=== PATIENT | female | born 1950 | race Caucasian/White ===

== ENCOUNTER 2018-02-24 12:53 | Inpatient (IN) | payer OTHER ==
[~2018-02-24] VITALS: Ht 175.3 cm; Wt 105.7 kg
--- NOTE | ~2018-02-24 | CON ---
[place], [place] REPORT OF CONSULTATION NAME: SAMANTHA STAFFORD UNIT #: [id number] ROOM: 520 DOCTOR: JACK SCHNEIDER MD BIRTHDATE: [birth year] DOS: 02/25/2018 REASON FOR CONSULTATION: Acute on chronic kidney disease. HISTORY OF PRESENT ILLNESS: This is a 67-year-old female who presented to the hospital with complaints of shortness of breath. She was also complaining of nonproductive dry cough with subjective fever and chills at home. Chest x-ray in the emergency room showed bilateral infiltrates. The patient was admitted to the hospital for treatment with IV antibiotics. On admission, she was noted to have a creatinine of 3.04. She does have a history of chronic kidney disease and follows with my associate, Dr. Anderson. She was last seen in the office on February 21. Her baseline creatinine has been around 1.3-1.5. She has a solitary right kidney. History of left nephrectomy about 2 years ago. Reasons unknown, questionable tumor versus stones. She had been initially seen in our office in 2016, but she did not follow up or get any of her urine studies done. When she presented to the hospital, her urinalysis showed 3+ protein and many rbc's. She was also noted to have many granular casts with 2+ bacteria. Urine cultures are now positive for Gram-negative bacilli. She has been on IV fluids and her creatinine has improved to 2.37. She states that she feels well and denies any foamy urine or hematuria. PAST MEDICAL HISTORY: Nephrectomy, diabetes, hypertension, history of CVA. SOCIAL HISTORY: No substance abuse. FAMILY HISTORY: Noncontributory. ALLERGIES: No known drug allergies. HOME MEDICATIONS: Lisinopril 40 mg daily, Lantus insulin, amlodipine, Humalog insulin, Lipitor, metoprolol, Plavix, multivitamin. REVIEW OF SYSTEMS: A full review of system was done and is negative except as mentioned in history of present illness. PHYSICAL EXAMINATION: GENERAL: The patient is alert, awake and oriented. No acute distress. VITAL SIGNS: Blood pressure is 126/67, heart rates 116, pulse ox is 97% on 4 liters. HEENT: Normocephalic, atraumatic. NECK: Supple. CHEST: Bilateral lower lobe rhonchi. CARDIOVASCULAR: S1, S2 regular rate and rhythm. ABDOMEN: Soft, nontender. EXTREMITIES: No cyanosis, clubbing or edema. NEUROLOGIC: Nonfocal. DIAGNOSTIC STUDIES: WBC is 20.9, hemoglobin 9.8. Sodium 133, BUN 46, creatinine 2.37. Hemoglobin A1c is 8.6, calcium 7.8, phosphorus is 2.6. [place], [place] REPORT OF CONSULTATION NAME: SAMANTHA STAFFORD UNIT #: [id number] ROOM: [facility] [place] DOCTOR: JACK SCHNEIDER MD BIRTHDATE: [birth year] ASSESSMENT AND PLAN: Acute on chronic kidney injury -- this patient has a history of chronic kidney disease with the background of diabetes and hypertension along with solitary right kidney. She is currently in acute kidney injury with the setting of pneumonia as well as urinary tract infection. She has protein and blood in her urine, but I think that may be related to urinary tract infection. For now, I would suggest continuation of antibiotics and IV fluids as you have been doing with close attention to her creatinine clearance for all medication dosing. Once her creatinine reaches her baseline and her symptoms are resolved then recheck urinalysis for proteinuria. Given her history of diabetes, which does not appear to have optimal control, it is not surprising if she would have proteinuria related to diabetic nephropathy. Continue to hold her lisinopril. Thank you for this kind consultation. Please do not hesitate to contact with questions. Jack Schneider MD CM:CONSTR:REPORT OF CONSULTATION 1403 03/15/18 [id number] interface
[~2018-02-24 12:53] MED LIST: BACTRIM DS 8001 TA1 PO; DIFLUCAN150 MG PO; LIPITOR10 MG PO; METFORMIN500 MG PO; PLAVIX75 M1 PO
[2018-02-24 12:57] VITALS: BP 151/75
[2018-02-24 13:28] LABS: HEMATOCRIT 32.1 % (37.0-47.0); HEMOGLOBIN 10.9 g/dl (12.0-16.0); MEAN CELL VOLUME 93.3 fl (81.0-99.0); MEAN CORPUSCULAR HGB 31.7 pg (27.0-31.0); MEAN PLATELET VOLUME 10.9 fl (9.6-12.3); PLATELET COUNT AUTOMATED 212 10*3/uL (130-400); RED BLOOD COUNT 3.44 10*6/uL (4.10-5.10); RED CELL DISTRI WIDTH 13.3 % (0-14.5); WHITE BLOOD COUNT 28.5 10*3/uL (4.8-10.8)
[2018-02-24 13:43] LABS: ALBUMIN 2.6 gm/dl (3.1-4.5); CREATININE 3.04 mg/dL (0.55-1.02); TOTAL PROTEIN 8.3 gm/dL (6.4-8.2)
[2018-02-24 13:58] LABS: TOTAL CELLS COUNTED 100 #CELLS
[2018-02-24 13:59] LABS: PLATELET SUFFICIENCY NORMAL (NORMAL)
[2018-02-24 14:11] LABS: BILIRUBIN 2+ (NEGATIVE); BLOOD 3+ (NEGATIVE); CLARITY CLOUDY (CLEAR); COLOR YELLOW (YELLOW); GLUCOSE TRACE (NEGATIVE); KETONE TRACE (NEGATIVE); LEUKO ESTERASE TRACE (NEGATIVE); NITRITE NEGATIVE (NEGATIVE); PH 5.5 (5.0-9.0); SPECIFIC GRAVITY >= 1.030 (1.005-1.030)
[2018-02-24 14:19] LABS: BACTERIA 2+; FINE GRANULAR CAST TNTC
[2018-02-24 14:25] VITALS: BP 124/65
[2018-02-24] MEDS ORDERED: MULTIPLE VITAM1 EAC1 PO (14:28)
[2018-02-24] MEDS ORDERED: METOPROLOL SUCC50 M2 PO (14:29)
[2018-02-24] MEDS ORDERED: LISINOPRIL40 MG PO (14:29)
[2018-02-24] MEDS ORDERED: NORVASC10 MG PO (14:30)
[2018-02-24] MEDS ORDERED: LANTUS SOL100 UNIT/1 SQ (14:30)
[2018-02-24] MEDS ORDERED: HUMALOG100 UNIT/2 SQ ×2 (14:31→15:47)
[2018-02-24] MEDS ORDERED: VITAMIN D-32000 UNI1 PO (14:31)
[2018-02-24] MEDS ORDERED: LIPITOR10 MG PO (14:31)
[2018-02-24] MEDS ORDERED: GLIPIZIDE5 MG PO (14:32)
[2018-02-24] MEDS ORDERED: TRAMADOL HCL50 MG PO (15:51)
[2018-02-24 16:00] VITALS: BP 135/72
[2018-02-24] MEDS ORDERED: METOPROLOL TART50 M1 PO (16:22)
[2018-02-24 20:00] VITALS: BP 110/61
[2018-02-25] VITALS: BP 137/65
[2018-02-25 08:00] VITALS: BP 126/71
[2018-02-25 08:08] LABS: HEMATOCRIT 29.5 % (37.0-47.0); HEMOGLOBIN 9.8 g/dl (12.0-16.0); MEAN CELL VOLUME 94.2 fl (81.0-99.0); MEAN CORPUSCULAR HGB 31.3 pg (27.0-31.0); MEAN CORPUSCULAR HGB CONC 33.2 g/dl (33.0-37.0); MEAN PLATELET VOLUME 11.5 fl (9.6-12.3); PLATELET COUNT AUTOMATED 198 10*3/uL (130-400); RED BLOOD COUNT 3.13 10*6/uL (4.10-5.10); RED CELL DISTRI WIDTH 13.8 % (0-14.5); WHITE BLOOD COUNT 20.9 10*3/uL (4.8-10.8)
[2018-02-25 08:37] LABS: CREATININE 2.37 mg/dL (0.55-1.02); FREE T4 1.38 ng/dl (0.76-1.46); PHOSPHOROUS 2.6 mg/dL (2.5-4.9); POTASSIUM 3.7 mmol/L (3.5-5.1); TOTAL PROTEIN 6.9 gm/dL (6.4-8.2)
[2018-02-25 08:41] LABS: THYROID STIM HORMONE (HS) 0.168 uIU/ml (0.358-4.75)
[2018-02-25 09:04] LABS: PLATELET SUFFICIENCY NORMAL (NORMAL); TOTAL CELLS COUNTED 100 #CELLS
[2018-02-25 09:05] LABS: TOXIC GRANULATION SLIGHT
[2018-02-25 10:16] LABS: VITAMIN D, 25-HYDROXY 18.9 ng/mL (30-100)
[2018-02-25 12:00] VITALS: BP 130/78
[2018-02-25 16:00] VITALS: BP 119/60
[2018-02-25 20:00] VITALS: BP 116/65
[2018-02-26] VITALS: BP 135/69
[2018-02-26 06:37] LABS: HEMATOCRIT 31.5 % (37.0-47.0); HEMOGLOBIN 10.6 g/dl (12.0-16.0); MEAN CELL VOLUME 93.2 fl (81.0-99.0); MEAN CORPUSCULAR HGB 31.4 pg (27.0-31.0); MEAN CORPUSCULAR HGB CONC 33.7 g/dl (33.0-37.0); NUCLEATED RED BLOOD CELL 0.1 % (0.0-0.0); PLATELET COUNT AUTOMATED 219 10*3/uL (130-400); RED BLOOD COUNT 3.38 10*6/uL (4.10-5.10); RED CELL DISTRI WIDTH 13.8 % (0-14.5); WHITE BLOOD COUNT 22.3 10*3/uL (4.8-10.8)
[2018-02-26 07:06] LABS: CREATININE 1.96 mg/dL (0.55-1.02); POTASSIUM 3.1 mmol/L (3.5-5.1)
[2018-02-26 07:41] LABS: BURR CELLS FEW; PLATELET SUFFICIENCY NORMAL (NORMAL); TOTAL CELLS COUNTED 100 #CELLS; TOXIC GRANULATION SLIGHT
[2018-02-26 07:42] LABS: DOHLE BODIES FEW
[2018-02-26 08:00] VITALS: BP 146/89
[2018-02-26 12:00] VITALS: BP 146/74
[2018-02-26 16:00] VITALS: BP 154/80
[2018-02-26 20:00] VITALS: BP 149/82
[2018-02-27 00:09] VITALS: BP 141/66
[2018-02-27 06:43] LABS: HEMATOCRIT 29.6 % (37.0-47.0); HEMOGLOBIN 10.1 g/dl (12.0-16.0); MEAN CELL VOLUME 91.9 fl (81.0-99.0); MEAN CORPUSCULAR HGB 31.4 pg (27.0-31.0); MEAN CORPUSCULAR HGB CONC 34.1 g/dl (33.0-37.0); MEAN PLATELET VOLUME 10.7 fl (9.6-12.3); NUCLEATED RED BLOOD CELL 0.1 % (0.0-0.0); PLATELET COUNT AUTOMATED 252 10*3/uL (130-400); RED BLOOD COUNT 3.22 10*6/uL (4.10-5.10); WHITE BLOOD COUNT 33.6 10*3/uL (4.8-10.8)
[2018-02-27 07:08] LABS: TOTAL CELLS COUNTED 100 #CELLS
[2018-02-27 07:09] LABS: PLATELET SUFFICIENCY NORMAL (NORMAL); POLYCHROMASIA SLIGHT; TOXIC GRANULATION MODERATE
[2018-02-27 07:11] LABS: CREATININE 1.63 mg/dL (0.55-1.02); POTASSIUM 3.8 mmol/L (3.5-5.1)
[2018-02-27 08:00] VITALS: BP 149/81
[2018-02-27 12:00] VITALS: BP 151/83
[2018-02-27 16:00] VITALS: BP 150/79
[2018-02-27 20:00] VITALS: BP 151/81
[2018-02-28] VITALS: BP 156/84
[2018-02-28 07:25] LABS: HEMATOCRIT 30.6 % (37.0-47.0); HEMOGLOBIN 10.4 g/dl (12.0-16.0); MEAN CELL VOLUME 91.9 fl (81.0-99.0); MEAN CORPUSCULAR HGB 31.2 pg (27.0-31.0); MEAN PLATELET VOLUME 10.6 fl (9.6-12.3); NUCLEATED RED BLOOD CELL 0.1 10*3/uL (0.0-0.0); NUCLEATED RED BLOOD CELL 0.3 % (0.0-0.0); PLATELET COUNT AUTOMATED 295 10*3/uL (130-400); RED BLOOD COUNT 3.33 10*6/uL (4.10-5.10); RED CELL DISTRI WIDTH 14.7 % (0-14.5); WHITE BLOOD COUNT 29.2 10*3/uL (4.8-10.8)
[2018-02-28 07:53] LABS: CREATININE 1.55 mg/dL (0.55-1.02); POTASSIUM 3.8 mmol/L (3.5-5.1)
[2018-02-28 08:00] VITALS: BP 158/81
[2018-02-28 08:04] LABS: PLATELET SUFFICIENCY NORMAL (NORMAL); TOTAL CELLS COUNTED 100 #CELLS
[2018-02-28 12:00] VITALS: BP 158/89
[2018-02-28] MEDS ORDERED: PREDNISONE50 MG PO (14:37)
[2018-02-28] MEDS ORDERED: VIBRAMYCIN100 MG PO (14:37)
[2018-02-28 16:00] VITALS: BP 155/76
[2018-02-28 21:05] VITALS: BP 159/82
== END 2018-02-28 20:58 | disposition home or self-care (01) | DRG 871 ==
LOC: ED 12:53 → EDHOLD 14:12 → 5E 14:12
PROVIDERS: Emergency Medicine; Internal Medicine; Student in an Organized Health Care Education/Training Program
DX: A41.9 Sepsis, unspecified organism (principal); J18.9 Pneumonia, unspecified organism; J96.01 Acute respiratory failure with hypoxia; E43 Unspecified severe protein-calorie malnutrition; N17.0 Acute kidney failure with tubular necrosis; E11.22 Type 2 diabetes mellitus with diabetic chronic kidney disease; N39.0 Urinary tract infection, site not specified; E87.1 Hypo-osmolality and hyponatremia; N18.9 Chronic kidney disease, unspecified; I12.9 Hypertensive chronic kidney disease with stage 1 through stage 4 chronic kidney disease, or unspecified chronic kidney disease; D64.9 Anemia, unspecified; R80.9 Proteinuria, unspecified; J45.909 Unspecified asthma, uncomplicated; E86.0 Dehydration; E66.01 Morbid (severe) obesity due to excess calories; Z88.5 Allergy status to narcotic agent; Z79.4 Long term (current) use of insulin; Z79.899 Other long term (current) drug therapy; Z98.51 Tubal ligation status; Z90.722 Acquired absence of ovaries, bilateral; Z82.49 Family history of ischemic heart disease and other diseases of the circulatory system; Z83.3 Family history of diabetes mellitus; Z90.5 Acquired absence of kidney; Z86.73 Personal history of transient ischemic attack (TIA), and cerebral infarction without residual deficits; Z68.34 Body mass index [BMI] 34.0-34.9, adult

== ENCOUNTER → 2022-03-16 | Outpatient (CLI) | payer OTHER ==
[~2022-03-16] MED LIST changes: +GLIPIZIDE5 MG PO; +HUMALOG100 UNIT/2 SQ; +LANTUS SOL100 UNIT/1 SQ; +LISINOPRIL40 MG PO; +METOPROLOL SUCC50 M2 PO; +METOPROLOL TART50 M1 PO; +MULTIPLE VITAM1 EAC1 PO; +NORVASC10 MG PO; +PREDNISONE50 MG PO; +TRAMADOL HCL50 MG PO; +VIBRAMYCIN100 MG PO; +VITAMIN D-32000 UNI1 PO
[2022-03-16 09:08] LABS: BASO # 0.1 10*3/uL (0.0-0.1); EOS # 0.1 10*3/uL (0.0-0.4); EOS % 2.1 % (1.0-4.0); HEMATOCRIT 40.1 % (37.0-47.0); LYMPH % 20.2 % (27.0-41.0); MEAN CELL VOLUME 92.8 fl (81.0-99.0); MEAN CORPUSCULAR HGB 32.4 pg (27.0-31.0); MEAN CORPUSCULAR HGB CONC 34.9 g/dl (33.0-37.0); MEAN PLATELET VOLUME 10.3 fl (9.6-12.3); MONO # 0.5 10*3/uL (0.1-1.0); MONO % 9.3 % (3.0-9.0); NEUT # 3.4 10*3/uL (2.3-7.9); NEUT % 66.6 % (47.0-73.0); PLATELET COUNT AUTOMATED 211 10*3/uL (130-400); RED BLOOD COUNT 4.32 10*6/uL (4.10-5.10); RED CELL DISTRI WIDTH 12.2 % (0-14.5); WHITE BLOOD COUNT 5.2 10*3/uL (4.8-10.8)
[2022-03-16 09:43] LABS: CREATININE 1.68 mg/dL (0.55-1.02); POTASSIUM 3.9 mmol/L (3.5-5.1); TOTAL PROTEIN 7.9 gm/dL (6.4-8.2)
[2022-03-16 09:50] LABS: VITAMIN D, 25-HYDROXY 32.8 ng/mL (30-100)
[2022-03-17 10:07] LABS: CREATININE,URINE 113.4 mg/dL (Not Estab.)
== END | disposition home or self-care (01) ==
LOC: LAB 08:44
PROVIDERS: ATTEND Family Medicine
DX: E11.22 Type 2 diabetes mellitus with diabetic chronic kidney disease (principal); E11.65 Type 2 diabetes mellitus with hyperglycemia; N18.30 Chronic kidney disease, stage 3 unspecified; E55.9 Vitamin D deficiency, unspecified